=== PATIENT | female | born 1965 | race African-American/Black ===

== ENCOUNTER 2018-09-21 05:11 | Day surgery (SDC) | payer OTHER ==
[~2018-09-21] VITALS: Ht 158.8 cm; Wt 113.4 kg
[2018-09-21] VITALS (8 sets, daily range): BP systolic 127–156; BP diastolic 75–95
[2018-09-21] MEDS ORDERED: oxyCONTIN 20mg tab ORAL ONE (06:00)
[2018-09-21] MEDS ORDERED: celeBREX 200mg Cap **SURGERY PATIENTS ONLY ORAL ONE (06:00)
[2018-09-21] MEDS ORDERED: ceFAZolin 1gm IVPB IVPB ONE ×2 (06:00)
[2018-09-21] MEDS ORDERED: AMLODIPINE BESY10 MG ORAL (06:11)
[2018-09-21] MEDS ORDERED: LOSARTAN-HCTZ1 EAC1 ORAL (06:11)
--- NOTE | 2018-09-21 06:42 | Anethesia Preoperative Eval ---
Anesthesia Pre-op PMH/ROS General Date of Evaluation: Sep 21, 2018 Anesthesiologist: Panchito ASA Score: ASA 3 Mallampati Score Class I : Soft palate, uvula, fauces, pillars visible Class II: Soft palate, uvula, fauces visible Class III: Soft palate, base of uvula visible Class IV: Only hard plate visible Mallampati Classification: Class III Surgeon: Nikolas Diagnosis: Right knee pain Surgical Procedure: Right knee arthroscopy Anesthesia History: none Social History: current smoker Family History: no anesthesia problems Allergies: Coded Allergies: No Known Allergies (Unverified , 09/20/18) Medications: see eMAR Patient NPO?: Yes NPO Date: Sep 20, 2018 NPO Time: 00:00 Past Medical History Cardiovascular: Reports: HTN, other - CHF; Denies: CAD, ND, valve dz, arrhythmia Pulmonary: Reports: asthma, COPD; Denies: CAMILO, other Gastrointestinal/Genitourinary: Denies: GERD, CRI, ESRD, other Neurologic/Psychiatric: Denies: dementia, CVA, depression/anxiety, TIA, other Endocrine: Denies: DM, hypothyroidism, steroids, other HEENT: Denies: cataract (L), cataract (R), glaucoma, [place] (L), [place] (R), other Hematology/Immune: Denies: anemia, DVT, bleeding disorder, other Musculoskeletal/Integumentary: Denies: OA, RA, DJD, DDD, edema, other Other: obesity - morbid PSxH Narrative: multiple Vulva surgeries Anesthesia Pre-op Phys. Exam Physician Exam Last Vital Signs Date Time Temp Pulse Resp B/P (MAP) Pulse Ox O2 Delivery O2 Flow Rate FiO2 09/21/18 06:04 98.1 77 20 139/76 98 Room Air Constitutional: NAD Cardiovascular: RRR Respiratory: other - distant breath sounds bilaterally, bilateral rhonchi Airway Exam Mallampati Score: Class III MO: limited ROM: limited Anesthesia Pre-op A/P Labs see chart Urine Test Test 09/21/18 05:15 Urine HCG, Qualitative Negative (NEGATIVE) Studies Pre-op Studies: EKG - nsr, CXR - no acute cardiopulmonary process Risk Assessment & Plan Assessment: ASA III Plan: GA Status Change Before Surgery: No Pre-Antibiotics Drug: Ancef 2g Given Within 1 Hr of Incision: Yes Reva Trent MD Sep 21, 2018 06:42
[2018-09-21] MEDS ORDERED: Morphine Sulfate PF 10 ML ONE (06:52)
[2018-09-21] MEDS ORDERED: EPINEPHrine 1mg/1ml Amp ONE (06:53)
[2018-09-21] MEDS ORDERED: Bupivacaine w/Epi 0.25% 30ml Vial INJ ONE (06:53)
[2018-09-21] MEDS ORDERED: Lidocaine 1% 10mg/ml/Epi 0.005mg/ml 30ml vial INJ ONE (06:53)
[2018-09-21] MEDS ORDERED: Bupivacaine 0.25% Inj 30ml INJ ONE (06:53)
[2018-09-21] MEDS ORDERED: Kenalog-40 1ml Vial ONE (06:53)
[2018-09-21] MEDS ORDERED: Ketorolac 30mg Inj ONE (06:53)
[2018-09-21] MEDS ORDERED: LR 1000ml ONE (07:00)
[2018-09-21] MEDS ORDERED: Zemuron 50mg/5ml Inj IV ONE (07:02)
[2018-09-21] MEDS ORDERED: Propofol 200mg/20ml IV ONE (07:05)
[2018-09-21] MEDS ORDERED: Lidocaine 1% MPF 10mg/ml 5ml ONE (07:05)
[2018-09-21] MEDS ORDERED: Midazolam 2mg/2ml Inj ONE (07:05)
[2018-09-21] MEDS ORDERED: fentaNYL 100 mcg/2 mL IV ONE (07:05)
[2018-09-21] MEDS ORDERED: LR 1000ml 1,000 ML IVLG SCH (07:26)
--- NOTE | 2018-09-21 07:26 | Pre-Procedure Note/Attestation ---
Pre-Procedure Note/Attestation Complete Prior to Procedure Planned Procedure: right Procedure Narrative: knee arthroscopy, medial and lateral menisectomy Indications for Procedure Pre-Operative Diagnosis: right knee internal derangement Attestation I attest that I discussed the nature of the procedure; its benefits; risks and complications; and alternatives (and the risks and benefits of such alternatives ), prior to the procedure, with the patient (or the patient's legal food service representative). I attest that, if there was a reasonable possibility of needing a blood transfusion, the patient (or the patient's legal food service representative) was given the [facility] standardized written summary, pursuant to the Cl[employer] Felipe Blood Safety Act ([place] Health and Safety Code # 1645, as amended). I attest that I re-evaluated the patient just prior to the surgery and that there has been no change in the patient's H&P, except as documented below: Gonzalo Connor MD Sep 21, 2018 07:26
--- NOTE | 2018-09-21 07:27 | Operative Note - PDOC ---
Operative Note Operative Note Pre-op Diagnosis: right knee internal derangement Procedure: see op report Post-op Diagnosis: same as pre-op plus Operative Findings: consistent w/pre-op dx studies Anesthesia: MAC Specimen: none Complications: none Condition: stable Estimated Blood Loss: none Implant(s) used?: No Gonzalo Connor MD Sep 21, 2018 07:27
[2018-09-21] MEDS ORDERED: fentaNYL 100 mcg/2 mL IV PRN (07:30)
[2018-09-21] MEDS ORDERED: D5 1/2NS 1,000 ML IV SCH (07:30)
[2018-09-21] MEDS ORDERED: Tylenol #3 tab (300mg/30mg) ORAL PRN (07:30)
[2018-09-21] MEDS ORDERED: Hydromorphone 0.5mg/0.5ml inj IVP PRN (07:30)
[2018-09-21] MEDS ORDERED: HYDROcodone/Acetamin 5/325 tab ORAL PRN (07:30)
[2018-09-21] MEDS ORDERED: Metoclopramide 10mg/2ml Inj IVP PRN (07:30)
[2018-09-21] MEDS ORDERED: HYDROmorphone 1mg/ml Carpuject SUBQ PRN (07:30)
[2018-09-21] MEDS ORDERED: LORazepam Inj 2mg/ml 1ml IV PRN (07:30)
[2018-09-21] MEDS ORDERED: DiphenhydrAMINE 50mg/ml Inj IVP PRN (07:30)
[2018-09-21] MEDS ORDERED: NS Irrig 4000ml IRRIG ONE (07:44)
[2018-09-21] MEDS ORDERED: Duramorph PF 10mg/10ml amp IV ONE (07:55)
--- NOTE | 2018-09-21 08:10 | Immediate Post-Op Evaluation ---
Immediate Post-Op Evalulation Immediate Post-Op Evalulation Procedure: right knee arthroscopy Date of Evaluation: Sep 21, 2018 Time of Evaluation: 08:12 IV Fluids: 400 Blood Products: 0 Estimated Blood Loss: min Urinary Output: 0 Blood Pressure Systolic: 156 Blood Pressure Diastolic: 86 Pulse Rate: 78 Respiratory Rate: 16 O2 Sat by Pulse Oximetry: 99 Temperature (Fahrenheit): 98.6 Pain Score (1-10): 0 Nausea: No Vomiting: No Complications 0 Patient Status: awake, reacts, patent, none Hydration Status: adequate Drug: Ancef 2g Given Within 1 Hr of Incision: Yes Reva Trent MD Sep 21, 2018 08:10
--- NOTE | 2018-09-21 08:11 | 48 Hour Post Anesthesia Eval ---
Post Anesthesia Evaluation Procedure: right knee arthroscopy Date of Evaluation: Sep 21, 2018 Airway: patent Nausea: No Vomiting: No Pain Intensity: 0 Hydration Status: adequate Cardiopulmonary Status: at baseline Mental Status/LOC: patient returned to baseline Post-Anesthesia Complications: 0 Follow-up care needed: ready to discharge Reva Trent MD Sep 21, 2018 08:11
--- NOTE | 2018-09-21 16:30 | Operative Note - Dictated ---
DATE OF OPERATION: 09/21/2018 POSTOPERATIVE DIAGNOSIS: Right knee medial and lateral meniscus tear. POSTOPERATIVE DIAGNOSES: 1. Right knee medial and lateral meniscus tear. 2. Left medial femoral condyle damage. 3. Hypertrophic fat pad and synovial tissue, medial and lateral patellofemoral compartment. PROCEDURES: 1. Left knee arthroscopic medial and lateral meniscectomy. 2. Chondroplasty, medial femoral condyle. 3. Synovectomy in lateral patellofemoral compartment. SURGEON: Gonzalo Connor M.D. ANESTHESIA: MAC. INDICATION FOR PROCEDURE: The patient is a pleasant female who has had a significant injury to the right knee. She had MRI, which showed tears of the meniscus as well as chondral damage, failed conservative treatment, and elected to undergo right knee arthroscopic meniscectomy, chondroplasty, and synovectomy. Risks, limitations, expectations, and complications of procedure were discussed in detail including continued pain, need for future surgery, risk of anesthesia, medical complications, DVT, PE, and mortality risks. All questions were addressed. DESCRIPTION OF PROCEDURE: After informed consent was obtained, the patient was brought to the operating room. The patient was placed under general anesthesia. Tourniquet was applied to the right proximal thigh. Right leg was prepped and draped in a sterile manner. Time-out was performed. A 0.25% Marcaine injected in the knee joint. The portal sites were injected with 1% lidocaine with epinephrine. Esmarch was used to exsanguinate the extremity. Inferolateral stab incision was then made. Trocar was introduced into the knee joint. There was hypertrophic fat pad and synovial tissue in patellofemoral compartment. Medial gutter was free of any loose bodies. Medial compartment was entered. There was a tear of the posterior horn of medial meniscus. Partial meniscectomy was performed using combination of biters and dyllan. There was area of chondral damage in the distal femoral condyle with the chondral flaps. Gentle chondroplasty of the chondral flaps was performed. The excision of the synovium and fat pad was continued in intercondylar notch and lateral compartment. The ACL was intact. Lateral compartment was entered. There was tear at the lateral meniscus, extending into the middle body to the anterior horn. Partial meniscectomy was performed. Once that was done, the camera was repositioned in the patellofemoral compartment and excision of the fat pad and synovectomy was completed. ESTIMATED BLOOD LOSS: None. COMPLICATIONS: None. SPECIMENS: None. Gonzalo Connor M.D. DR: HELEN JOB#: [id number] CC:
== END 2018-09-21 10:00 | disposition home or self-care (01) ==
LOC: SUR 05:11
DX: S83.281A Other tear of lateral meniscus, current injury, right knee, initial encounter (principal); S83.241A Other tear of medial meniscus, current injury, right knee, initial encounter; M79.4 Hypertrophy of (infrapatellar) fat pad; M67.261 Synovial hypertrophy, not elsewhere classified, right lower leg; I11.0 Hypertensive heart disease with heart failure; I50.9 Heart failure, unspecified; E66.01 Morbid (severe) obesity due to excess calories; J44.9 Chronic obstructive pulmonary disease, unspecified; F17.200 Nicotine dependence, unspecified, uncomplicated; Z68.42 Body mass index [BMI] 45.0-49.9, adult; X58.XXXA Exposure to other specified factors, initial encounter; Y92.9 Unspecified place or not applicable
CPT/HCPCS: 29880; 81025; 97161; J0171; J0690; J1885; J2250; J2274; J2704; J3010; J3301; J3490; 94003; 94150